=== PATIENT | female | born 1950 | race Caucasian/White ===

== ENCOUNTER 2020-10-30 22:13 | Emergency (ER) | payer MEDICARE ==
[~2020-10-30] VITALS: Ht 167.6 cm; Wt 79.0 kg
[~2020-10-30 22:13] MED LIST: ASPIRIN LOW DOS81 M2 PO; ERYTHROMYCIN O3.5 GM OP; FLEXERIL OR; HYZAAR1 TA2 PO; LISINOP/HCTZ1 TA1 PO; LISINOPRIL/HYDR1 TA1 PO; LORTAB 5 OR; MICARDIS H80 MG/25 M PO; MICARDIS HC1 OR; MYCARDIS OR; PRAVACHOL20 MG OR; PRAVASTATIN SOD40 MG PO; PRAVASTATIN20 MG PO; ZPAK PO
[2020-10-30 23:25] LABS: HEMATOCRIT 43.8 % (37.0-47.0); HEMOGLOBIN 14.3 g/dl (12.0-16.0); IMMATURE GRANULOCYTES 3.3 % (0.0-5.0); MEAN CELL VOLUME 91.3 fL CALC (80.0-100.0); MEAN CORPUSCULAR HGB 29.8 pG CALC (26.0-32.0); MEAN CORPUSCULAR HGB CONC 32.6 g/dL CAL (32.0-36.0); PLATELET COUNT 204 thou/uL (130-400); RED CELL DISTRI WIDTH 14.9 % (11.5-15.5)
[2020-10-30 23:40] LABS: ALKALINE PHOSPHATASE 52 u/l (38-126); BILIRUBIN, TOTAL 0.8 mg/dL (0.0-1.4); BUN 33 mg/dL (8-23); BUN/CREATININE RATIO 42 (12-20 (CALC)); CARBON DIOXIDE 24 mmol/l (22-30); CHLORIDE 92 mmol/l (95-108); CREATININE 0.8 mg/dL (0.5-1.0); GFR > 60 ML/MIN (>=60 (CALC)); GFR FOR AFR.AMER. > 60 ML/MIN (>=60 (CALC)); POTASSIUM 4.3 mmol/l (3.5-5.1)
[2020-10-30 23:47] LABS: ALBUMIN 2.8 g/dL (3.2-5.0); ANION GAP 11 (6-22 (CALC)); SGOT/AST 31 u/l (9-36); SODIUM 123 mmol/l (137-146)
[2020-10-30 23:52] LABS: MYOGLOBIN 59 ng/mL (0 - 62)
[2020-10-30 23:53] LABS: MANUAL DIFFERENTIAL YES
[2020-10-31 00:41] LABS: BAND 3 % (0-8)
[2020-10-31 01:20] VITALS: BP 120/58
== END 2020-10-31 01:20 ==
LOC: ED 22:13
PROVIDERS: Emergency Medicine
DX: A41.9 Sepsis, unspecified organism (principal); R79.89 Other specified abnormal findings of blood chemistry; E87.2 Acidosis; E87.1 Hypo-osmolality and hyponatremia; E11.9 Type 2 diabetes mellitus without complications; I10 Essential (primary) hypertension; C34.90 Malignant neoplasm of unspecified part of unspecified bronchus or lung; E78.00 Pure hypercholesterolemia, unspecified; F17.200 Nicotine dependence, unspecified, uncomplicated; Z92.3 Personal history of irradiation; Z20.822 Contact with and (suspected) exposure to COVID-19